=== PATIENT | female | born 1965 | race Caucasian/White ===

== ENCOUNTER 2016-06-29 17:43 | Observation (INO) | payer OTHER ==
[2016-06-29 17:15] LABS: HCT-HEMATOCRIT 40.4 % (34.0-49.0); HGB-HEMOGLOBIN 13.7 gm/dl (12.0-15.5); MCH (MEAN CORPUSCULAR HGB) 30.8 pg (28.0-32.0); MCHC MEAN CORPUSCULAR HGB CONC 33.9 % (32.0-36.0); MCV (MEAN CELL VOLUME) 90.8 fl (82.0-96.0); MEAN PLATELET VOLUME 10.8 cmc (9.4-12.4); NEUTROPHIL-AUTOMATED 28.8 tho/cmm (1.6-8.0); PLATELET COUNT 424 tho/cmm (150-450); RED BLOOD COUNT 4.45 mil/cmm (4.00-5.20); RED CELL DISTRIBUTION WIDTH 13.2 % (12.4-16.4)
[2016-06-29 17:39] LABS: ALB/GLOB RATIO 0.6 (0.8-2.0); ALBUMIN 3.2 g/dl (3.5-5.0); ALKALINE PHOSPHATASE 95 U/L (33-138); ALT/SGPT 16 U/L (12-78); BLOOD UREA NITROGEN 11 mg/dl (6-24); CALCIUM 8.4 mg/dl (8.5-10.5); CARBON DIOXIDE-VENOUS 25 mmol/L (22-32); CHLORIDE 106 mmol/l (96-110); CREATININE 0.91 mg/dl (0.50-1.10); GLUCOSE 80 mg/dL (70-110); SODIUM 140 mmol/L (135-145); eGFR VALUE FOR BLACK 85 mL/Min
[2016-06-29 17:40] LABS: ANION GAP 14 mmol/L (0-20); AST/SGOT 35 U/L (10-40); POTASSIUM 4.6 mmol/L (3.7-5.1)
[2016-06-29 17:42] LABS: BAND % 15 % (0-20); EOSINOPHIL % 4 % (0-7)
[~2016-06-29 17:43] MED LIST: ULTRAM50 M1 PO
[2016-06-29 17:48] LABS: PROCALCITONIN 0.35 ng/ml (0.05-0.09)
[2016-06-29] MEDS ORDERED: NAPROSYN500 M1 PO (18:16)
[2016-06-29] MEDS ORDERED: PROBIOTIC1 EA10 PO (18:16)
[2016-06-29] MEDS ORDERED: ECZEMA CREAM TP (18:30)
[2016-06-29 22:04] LABS: URINE BILIRUBIN NEGATIVE (NEG); URINE BLOOD MODERATE (NEG); URINE GLUCOSE (UA) NEGATIVE (NEG); URINE KETONE MODERATE (NEG); URINE LEUKOCYTE ESTERASE POSITIVE (NEG); URINE NITRITE NEGATIVE (NEG); URINE PROTEIN SMALL (NEG); URINE SPECIFIC GRAVITY 1.015 (1.003-1.030)
[2016-06-29 22:05] LABS: URINE APPEARANCE HAZY; URINE COLOR YELLOW
[2016-06-29 22:09] LABS: URINE MUCUS 1+
[2016-06-29 22:11] LABS: URINE AMORPHOUS 2+
[2016-06-30 05:52] LABS: BASO % 0.1 % (0-2); EOSINOPHIL ABSOLUTE COUNT 1.2 tho/cmm (0.0-0.7); HCT-HEMATOCRIT 34.9 % (34.0-49.0); HGB-HEMOGLOBIN 11.3 gm/dl (12.0-15.5); IMMATURE GRANULOCYTES ABSOLUTE 0.23 tho/cmm (0-0.03); IMMATURE GRANULOCYTES PERCENT 0.8 % (0-0.3); LYMPH % 2.9 % (20-45); LYMPH ABSOLUTE COUNT 0.9 tho/cmm (0.8-4.5); MCH (MEAN CORPUSCULAR HGB) 29.7 pg (28.0-32.0); MCHC MEAN CORPUSCULAR HGB CONC 32.4 % (32.0-36.0); MCV (MEAN CELL VOLUME) 91.6 fl (82.0-96.0); MEAN PLATELET VOLUME 10.6 cmc (9.4-12.4); MONO % 5.4 % (0-12); MONOCYTE ABSOLUTE COUNT 1.6 tho/cmm (0.0-1.2); NEUTROPHILS % 86.8 % (40-80); PLATELET COUNT 359 tho/cmm (150-450); RED BLOOD COUNT 3.81 mil/cmm (4.00-5.20); RED CELL DISTRIBUTION WIDTH 13.4 % (12.4-16.4); WHITE BLOOD COUNT 28.8 tho/cmm (4.0-10.0)
[2016-06-30 06:07] LABS: ANION GAP 15 mmol/L (0-20); BLOOD UREA NITROGEN 10 mg/dl (6-24); CALCIUM 7.3 mg/dl (8.5-10.5); CARBON DIOXIDE-VENOUS 23 mmol/L (22-32); CHLORIDE 111 mmol/l (96-110); CREATININE 0.72 mg/dl (0.50-1.10); GLUCOSE 119 mg/dL (70-110); SODIUM 145 mmol/L (135-145); eGFR VALUE FOR BLACK >90 mL/Min
[2016-06-30 06:10] LABS: POTASSIUM 3.6 mmol/L (3.7-5.1)
[2016-06-30 09:31] LABS: ABG CO2 ARTERIAL 21 mmol/L (21-27); ARTERIAL BLD GAS O2 SATURATION 95 % (95-98); ARTERIAL BLOOD GAS PCO2 31 mmHg (32-45); ARTERIAL PO2 70 mmHg (70-100); BICARBONATE 20 mmol/L (21-28); BLOOD GAS BASE EXCESS -3 mM/L (-/+3); PH 7.43 Units (7.35-7.45)
[2016-06-30 15:45] LABS: PROCALCITONIN 0.29 ng/ml (0.05-0.09)
[2016-06-30 15:47] LABS: ANION GAP 11 mmol/L (0-20); CARBON DIOXIDE-VENOUS 24 mmol/L (22-32); CHLORIDE 113 mmol/l (96-110); GLUCOSE 108 mg/dL (70-110); POTASSIUM 3.5 mmol/L (3.7-5.1); SODIUM 144 mmol/L (135-145)
[2016-06-30 15:48] LABS: BLOOD UREA NITROGEN 7 mg/dl (6-24); CALCIUM 7.1 mg/dl (8.5-10.5); CREATININE 0.72 mg/dl (0.50-1.10); eGFR VALUE FOR BLACK >90 mL/Min
[2016-06-30 15:49] LABS: ALB/GLOB RATIO 0.6 (0.8-2.0); ALBUMIN 2.3 g/dl (3.5-5.0); ALKALINE PHOSPHATASE 86 U/L (33-138); ALT/SGPT 26 U/L (12-78); AST/SGOT 36 U/L (10-40); BILIRUBIN,TOTAL 0.4 mg/dl (0-1.5)
[2016-06-30 18:27] LABS: INR 1.3 INR (0.9-1.1); PROTHROMBIN TIME 15.2 SECONDS (9.0-13.6)
[2016-07-01 04:56] LABS: BASO % 0.1 % (0-2); EOS % 6.8 % (0-7); EOSINOPHIL ABSOLUTE COUNT 1.4 tho/cmm (0.0-0.7); HCT-HEMATOCRIT 31.2 % (34.0-49.0); HGB-HEMOGLOBIN 10.2 gm/dl (12.0-15.5); IMMATURE GRANULOCYTES ABSOLUTE 0.07 tho/cmm (0-0.03); IMMATURE GRANULOCYTES PERCENT 0.3 % (0-0.3); LYMPH ABSOLUTE COUNT 1.1 tho/cmm (0.8-4.5); MCH (MEAN CORPUSCULAR HGB) 29.7 pg (28.0-32.0); MCHC MEAN CORPUSCULAR HGB CONC 32.7 % (32.0-36.0); MCV (MEAN CELL VOLUME) 90.7 fl (82.0-96.0); MEAN PLATELET VOLUME 10.6 cmc (9.4-12.4); MONO % 6.8 % (0-12); MONOCYTE ABSOLUTE COUNT 1.4 tho/cmm (0.0-1.2); PLATELET COUNT 307 tho/cmm (150-450); RED BLOOD COUNT 3.44 mil/cmm (4.00-5.20); RED CELL DISTRIBUTION WIDTH 13.7 % (12.4-16.4)
[2016-07-01 05:08] LABS: ALBUMIN 2.1 g/dl (3.5-5.0); ANION GAP 10 mmol/L (0-20); BLOOD UREA NITROGEN 6 mg/dl (6-24); CALCIUM 6.9 mg/dl (8.5-10.5); CARBON DIOXIDE-VENOUS 22 mmol/L (22-32); CHLORIDE 117 mmol/l (96-110); CREATININE 0.57 mg/dl (0.50-1.10); GLUCOSE 114 mg/dL (70-110); PHOSPHOROUS 1.6 mg/dl (2.5-4.9); SODIUM 146 mmol/L (135-145); eGFR VALUE FOR BLACK >90 mL/Min
[2016-07-01 05:14] LABS: PROCALCITONIN 0.21 ng/ml (0.05-0.09)
[2016-07-01 16:01] LABS: BASO % 0.2 % (0-2); EOS % 7.3 % (0-7); EOSINOPHIL ABSOLUTE COUNT 1.4 tho/cmm (0.0-0.7); HCT-HEMATOCRIT 30.8 % (34.0-49.0); HGB-HEMOGLOBIN 10.2 gm/dl (12.0-15.5); IMMATURE GRANULOCYTES ABSOLUTE 0.09 tho/cmm (0-0.03); IMMATURE GRANULOCYTES PERCENT 0.5 % (0-0.3); LYMPH % 8.5 % (20-45); LYMPH ABSOLUTE COUNT 1.6 tho/cmm (0.8-4.5); MCHC MEAN CORPUSCULAR HGB CONC 33.1 % (32.0-36.0); MCV (MEAN CELL VOLUME) 90.6 fl (82.0-96.0); MEAN PLATELET VOLUME 10.3 cmc (9.4-12.4); MONO % 6.4 % (0-12); MONOCYTE ABSOLUTE COUNT 1.2 tho/cmm (0.0-1.2); NEUTROPHIL ABSOLUTE COUNT 14.7 tho/cmm (1.6-8.0); NEUTROPHIL-AUTOMATED 14.7 tho/cmm (1.6-8.0); NEUTROPHILS % 77.1 % (40-80); PLATELET COUNT 280 tho/cmm (150-450); RED CELL DISTRIBUTION WIDTH 13.8 % (12.4-16.4); WHITE BLOOD COUNT 19.1 tho/cmm (4.0-10.0)
[2016-07-01 16:03] LABS: INR 1.2 INR (0.9-1.1); PROTHROMBIN TIME 13.9 SECONDS (9.0-13.6)
[2016-07-01 16:09] LABS: ANION GAP 13 mmol/L (0-20); BLOOD UREA NITROGEN 5 mg/dl (6-24); CALCIUM 7.1 mg/dl (8.5-10.5); CARBON DIOXIDE-VENOUS 22 mmol/L (22-32); CHLORIDE 117 mmol/l (96-110); CREATININE 0.49 mg/dl (0.50-1.10); GLUCOSE 83 mg/dL (70-110); SODIUM 148 mmol/L (135-145); eGFR VALUE FOR BLACK >90 mL/Min
[2016-07-01 16:14] LABS: POTASSIUM 3.5 mmol/L (3.7-5.1)
[2016-07-02 06:12] LABS: BASO % 0.2 % (0-2); EOS % 9.3 % (0-7); EOSINOPHIL ABSOLUTE COUNT 1.3 tho/cmm (0.0-0.7); HCT-HEMATOCRIT 34.1 % (34.0-49.0); HGB-HEMOGLOBIN 11.1 gm/dl (12.0-15.5); IMMATURE GRANULOCYTES ABSOLUTE 0.11 tho/cmm (0-0.03); IMMATURE GRANULOCYTES PERCENT 0.8 % (0-0.3); LYMPH ABSOLUTE COUNT 1.3 tho/cmm (0.8-4.5); MCH (MEAN CORPUSCULAR HGB) 29.4 pg (28.0-32.0); MCHC MEAN CORPUSCULAR HGB CONC 32.6 % (32.0-36.0); MCV (MEAN CELL VOLUME) 90.2 fl (82.0-96.0); MEAN PLATELET VOLUME 10.4 cmc (9.4-12.4); MONO % 7.2 % (0-12); NEUTROPHIL ABSOLUTE COUNT 10.4 tho/cmm (1.6-8.0); NEUTROPHIL-AUTOMATED 10.4 tho/cmm (1.6-8.0); NEUTROPHILS % 73.5 % (40-80); PLATELET COUNT 352 tho/cmm (150-450); RED BLOOD COUNT 3.78 mil/cmm (4.00-5.20); RED CELL DISTRIBUTION WIDTH 13.8 % (12.4-16.4); WHITE BLOOD COUNT 14.1 tho/cmm (4.0-10.0)
[2016-07-02 06:31] LABS: ALBUMIN 2.3 g/dl (3.5-5.0); ANION GAP 10 mmol/L (0-20); BLOOD UREA NITROGEN 7 mg/dl (6-24); C-REACTIVE PROTEIN 10.6 mg/dl (0-0.9); CALCIUM 7.2 mg/dl (8.5-10.5); CARBON DIOXIDE-VENOUS 25 mmol/L (22-32); CHLORIDE 114 mmol/l (96-110); GLUCOSE 101 mg/dL (70-110); PHOSPHOROUS 1.7 mg/dl (2.5-4.9); POTASSIUM 3.2 mmol/L (3.7-5.1); SODIUM 146 mmol/L (135-145); eGFR VALUE FOR BLACK >90 mL/Min
[2016-07-02 06:36] LABS: TSH-THYROID STIMULATING HORM. 2.36 uIU/ml (0.40-3.80)
[2016-07-03 06:49] LABS: BASO % 0.8 % (0-2); BASO ABSOLUTE COUNT 0.1 tho/cmm (0.0-0.2); EOS % 8.8 % (0-7); EOSINOPHIL ABSOLUTE COUNT 0.7 tho/cmm (0.0-0.7); HCT-HEMATOCRIT 32.7 % (34.0-49.0); HGB-HEMOGLOBIN 10.7 gm/dl (12.0-15.5); LYMPH % 13.1 % (20-45); MCH (MEAN CORPUSCULAR HGB) 29.6 pg (28.0-32.0); MCHC MEAN CORPUSCULAR HGB CONC 32.7 % (32.0-36.0); MCV (MEAN CELL VOLUME) 90.3 fl (82.0-96.0); MEAN PLATELET VOLUME 10.3 cmc (9.4-12.4); MONO % 12.5 % (0-12); MONOCYTE ABSOLUTE COUNT 0.9 tho/cmm (0.0-1.2); NEUTROPHIL ABSOLUTE COUNT 4.8 tho/cmm (1.6-8.0); NEUTROPHIL-AUTOMATED 4.8 tho/cmm (1.6-8.0); NEUTROPHILS % 64.8 % (40-80); PLATELET COUNT 294 tho/cmm (150-450); RED BLOOD COUNT 3.62 mil/cmm (4.00-5.20); RED CELL DISTRIBUTION WIDTH 13.7 % (12.4-16.4); WHITE BLOOD COUNT 7.4 tho/cmm (4.0-10.0)
[2016-07-03 07:03] LABS: ANION GAP 10 mmol/L (0-20); BLOOD UREA NITROGEN 4 mg/dl (6-24); CALCIUM 7.4 mg/dl (8.5-10.5); CARBON DIOXIDE-VENOUS 25 mmol/L (22-32); CHLORIDE 114 mmol/l (96-110); GLUCOSE 89 mg/dL (70-110); PHOSPHOROUS 3.6 mg/dl (2.5-4.9); POTASSIUM 3.4 mmol/L (3.7-5.1); SODIUM 146 mmol/L (135-145); eGFR VALUE FOR BLACK >90 mL/Min
[2016-07-04 05:55] LABS: BASO % 0.5 % (0-2); EOS % 8.4 % (0-7); EOSINOPHIL ABSOLUTE COUNT 0.7 tho/cmm (0.0-0.7); HCT-HEMATOCRIT 30.9 % (34.0-49.0); IMMATURE GRANULOCYTES ABSOLUTE 0.12 tho/cmm (0-0.03); IMMATURE GRANULOCYTES PERCENT 1.5 % (0-0.3); MCH (MEAN CORPUSCULAR HGB) 29.1 pg (28.0-32.0); MCHC MEAN CORPUSCULAR HGB CONC 32.4 % (32.0-36.0); MCV (MEAN CELL VOLUME) 89.8 fl (82.0-96.0); MEAN PLATELET VOLUME 10.1 cmc (9.4-12.4); MONO % 11.7 % (0-12); MONOCYTE ABSOLUTE COUNT 0.9 tho/cmm (0.0-1.2); NEUTROPHIL ABSOLUTE COUNT 5.3 tho/cmm (1.6-8.0); NEUTROPHIL-AUTOMATED 5.3 tho/cmm (1.6-8.0); NEUTROPHILS % 65.9 % (40-80); PLATELET COUNT 303 tho/cmm (150-450); RED BLOOD COUNT 3.44 mil/cmm (4.00-5.20); RED CELL DISTRIBUTION WIDTH 13.9 % (12.4-16.4); WHITE BLOOD COUNT 8.1 tho/cmm (4.0-10.0)
[2016-07-05 06:37] LABS: BASO % 0.9 % (0-2); BASO ABSOLUTE COUNT 0.1 tho/cmm (0.0-0.2); EOS % 10.2 % (0-7); EOSINOPHIL ABSOLUTE COUNT 0.9 tho/cmm (0.0-0.7); HCT-HEMATOCRIT 30.3 % (34.0-49.0); HGB-HEMOGLOBIN 10.1 gm/dl (12.0-15.5); IMMATURE GRANULOCYTES ABSOLUTE 0.11 tho/cmm (0-0.03); IMMATURE GRANULOCYTES PERCENT 1.2 % (0-0.3); LYMPH % 17.5 % (20-45); LYMPH ABSOLUTE COUNT 1.6 tho/cmm (0.8-4.5); MCH (MEAN CORPUSCULAR HGB) 29.8 pg (28.0-32.0); MCHC MEAN CORPUSCULAR HGB CONC 33.3 % (32.0-36.0); MCV (MEAN CELL VOLUME) 89.4 fl (82.0-96.0); MEAN PLATELET VOLUME 10.2 cmc (9.4-12.4); MONO % 8.9 % (0-12); MONOCYTE ABSOLUTE COUNT 0.8 tho/cmm (0.0-1.2); NEUTROPHIL ABSOLUTE COUNT 5.5 tho/cmm (1.6-8.0); NEUTROPHIL-AUTOMATED 5.5 tho/cmm (1.6-8.0); NEUTROPHILS % 61.3 % (40-80); PLATELET COUNT 278 tho/cmm (150-450); RED BLOOD COUNT 3.39 mil/cmm (4.00-5.20)
[2016-07-05 06:51] LABS: ANION GAP 10 mmol/L (0-20); BLOOD UREA NITROGEN 7 mg/dl (6-24); C-REACTIVE PROTEIN 4.2 mg/dl (0-0.9); CALCIUM 7.1 mg/dl (8.5-10.5); CARBON DIOXIDE-VENOUS 27 mmol/L (22-32); CHLORIDE 110 mmol/l (96-110); CREATININE 0.53 mg/dl (0.50-1.10); GLUCOSE 83 mg/dL (70-110); POTASSIUM 3.3 mmol/L (3.7-5.1); SODIUM 144 mmol/L (135-145); eGFR VALUE FOR BLACK >90 mL/Min
[2016-07-05] MEDS ORDERED: BACTRIM DS TAB1 EAC2 PO (17:23)
[2016-07-05] MEDS ORDERED: VENTOLIN HFA18 G2 PO (17:24)
[2016-07-05] MEDS ORDERED: PRILOSEC OTC20 M1 PO (17:28)
== END 2016-07-05 18:00 ==
LOC: EDMED 17:43 → EMR2 21:04 → 5WD 21:47 → CCU 06-30 12:38 → 5WE 07-02 05:20
PROVIDERS: Emergency Medicine; Family Medicine; Internal Medicine Infectious Disease; Radiology Diagnostic Radiology; ADMIT Family Medicine
PROC: 05H533Z Insertion of Infusion Device into Right Subclavian Vein, Percutaneous Approach (ICD-10-PCS; principal; 2016-07-05)
PROC: BH02ZZZ Plain Radiography of Bilateral Breasts (ICD-10-PCS; 2016-07-05)
DX: A41.9 Sepsis, unspecified organism (principal); R65.21 Severe sepsis with septic shock; R59.1 Generalized enlarged lymph nodes; L30.9 Dermatitis, unspecified; D72.1 Eosinophilia; D64.9 Anemia, unspecified; E78.5 Hyperlipidemia, unspecified; H91.92 Unspecified hearing loss, left ear; K21.9 Gastro-esophageal reflux disease without esophagitis; J45.909 Unspecified asthma, uncomplicated; R82.99 Other abnormal findings in urine; Z88.0 Allergy status to penicillin; Z88.1 Allergy status to other antibiotic agents; Z88.8 Allergy status to other drugs, medicaments and biological substances; Z79.899 Other long term (current) drug therapy
CPT/HCPCS: C1751; C1769; G0204; G0378; J1335; J2185; J2250; J2270; J3010; J3370; J7030; J7040; J7050

== ENCOUNTER 2016-07-06 09:13 | Emergency (ER) | payer OTHER ==
[~2016-07-06 09:13] MED LIST changes: +BACTRIM DS TAB1 EAC2 PO; +ECZEMA CREAM TP; +NAPROSYN500 M1 PO; +PRILOSEC OTC20 M1 PO; +PROBIOTIC1 EA10 PO; +VENTOLIN HFA18 G2 PO
== END 2016-07-06 10:46 ==
LOC: EDMED 09:13
DX: T82.838A Hemorrhage due to vascular prosthetic devices, implants and grafts, initial encounter (principal); Y84.8 Other medical procedures as the cause of abnormal reaction of the patient, or of later complication, without mention of misadventure at the time of the procedure